=== PATIENT | female | born 2005 | race Caucasian/White ===

== ENCOUNTER 2025-07-25 06:31 | Day surgery (SDC) | payer BC, SELFPAY | END 2025-07-25 15:22 | disposition home or self-care (01) | LOC: GI 06:31 | PROVIDERS: ATTENDING PHYSICIAN Internal Medicine Gastroenterology | DX: R19.4 Change in bowel habit (principal); K64.8 Other hemorrhoids | CPT/HCPCS: 45380; 88305 ==